=== PATIENT | male | born 1995 | race Caucasian/White ===

== ENCOUNTER 2017-03-03 08:33 | Day surgery (SDC) | payer BC ==
[~2017-03-03] VITALS: Ht 175.3 cm; Wt 76.2 kg
--- NOTE | ~2017-03-03 | OP ---
PATIENT NAME: MORENO HICKS MEDICAL RECORD: [id number] :89 LOCATION:[facility] ADMISSION DATE: SURGEON: JOSE LUIS NEWSOME MD DATE OF OPERATION: 03/03/2017 PREOPERATIVE DIAGNOSIS: Chronic pharyngitis. POSTOPERATIVE DIAGNOSIS: Chronic pharyngitis. PROCEDURE: Tonsillectomy and adenoidectomy. SURGEON: Jose Luis Newsome MD ANESTHESIA: General orotracheal. BLOOD LOSS: Less than 5 cc. SPECIMENS: Right and left tonsil. COMPLICATIONS: None. DISPOSITION: Recovery stable. DESCRIPTION OF PROCEDURE: He was brought to the operating room and placed in supine position, sedated and intubated by anesthesia. The eyes were taped. The table was turned 90 degrees. A head drape was applied and he was positioned for tonsillectomy. Using a headlight, a Nando-Jaylna mouth gag was carefully inserted and elevated on a towel on the chest. The palate was examined and palpated. It was normal. A red rubber catheter was placed through the right side of the nose into the pharynx and grasped with tonsil clamp to retract the soft palate. Using a mirror, the nasopharynx was examined. Suction cautery on a setting of 35 was used to ablate and suction the adenoid pad with no significant bleeding. The choanae and eustachian orifices were normal bilaterally. The red rubber catheter was let down and removed. The right tonsil was grasped at the superior pole with a straight Allis clamp and there was tremendous amount of caseous material on both sides. Spatula tip cautery on a setting of 9 was used to dissect out the tonsil along its capsule, preserving the anterior and posterior tonsillar pillars. The left tonsil was removed in the same fashion. Then, both sides of the nose were irrigated with saline. The pharynx was suctioned. Tonsillar fossae were agitated. Suction cautery on a setting of 20 was used to control minimal oozing. With the field clean and dry, the Nando-Jaylan mouth gag was let down and removed. He was awakened, extubated, and transported to recovery in good condition. No complications. TRANSINT:[id number] Voice Confirmation ID: [id number] DOCUMENT ID: [id number] JOSE LUIS NEWSOME MD at 1313 CC: [id number] DICTATION DATE: 03/03/17 1221 [employer] SUPERVISOR: 03/03/17 1318 [facility] 03/03/17 [facility] [address] [id number]
--- NOTE | ~2017-03-03 | HP ---
PATIENT: MORENO HICKS MEDICAL RECORD: [id number] ACCOUNT: [id number] [facility]ATION:[facility] : 89 ADMISSION DATE: 03/03/17 HISTORY AND PHYSICAL EXAMINATION PREOPERATIVE HISTORY AND PHYSICAL ANTICIPATED DATE OF SURGERY: 03/03/2017 HISTORY OF PRESENT ILLNESS: Moreno is 21 years old. He has had problems with recurrent strep pharyngitis. He is being admitted for tonsillectomy and adenoidectomy. PAST MEDICAL HISTORY: Otherwise negative. PAST SURGICAL HISTORY: None. CURRENT MEDICATIONS: Fioricet, omeprazole. ALLERGIES: No known drug allergies. PHYSICAL EXAMINATION: GENERAL: Healthy-appearing, developmentally normal. FACE: Normal, symmetric, no lesions. EYES: Sclerae and conjunctivae are normal. EARS: Canals and TMs are normal. NOSE: No mass, polyps or drainage. ORAL CAVITY AND OROPHARYNX: A 3+ tonsils with tonsilliths. NECK: No masses, no adenopathy. CHEST: Clear. CARDIOVASCULAR: Regular rate and rhythm, no murmur. EXTREMITIES: Normal. IMPRESSION: Chronic pharyngitis. PLAN: Tonsillectomy and adenoidectomy. TRANSINT:[id number] Voice Confirmation ID: [id number] DOCUMENT ID: [id number] JOSE LUIS SEALS MD at 1313 CC: [id number] DICTATION DATE: 03/01/17 1524 BILL SORTER: 03/01/17 1539 [facility] 03/03/17 [place] [id number]
[~2017-03-03 08:33] MED LIST: MOBIC7.5 MG; PROZAC10 MG PO; VITAMIN E400 UNI2 PO
[2017-03-03 10:20] VITALS: BP 126/71; Ht 175.3 cm; Wt 76.2 kg
== END 2017-03-03 14:00 | disposition home or self-care (01) ==
LOC: D.OPS 08:33
DX: J35.01 Chronic tonsillitis (principal); J03.90 Acute tonsillitis, unspecified; J31.2 Chronic pharyngitis; Z79.899 Other long term (current) drug therapy; Z01.812 Encounter for preprocedural laboratory examination